=== PATIENT | female | born 1975 | race Two or more races ===

== ENCOUNTER 2022-08-23 12:05 | Outpatient (REF) | payer MEDICAID, SELFPAY ==
[2022-08-23 14:15] LABS: Estimated Average Glucose 100 mg/dL; Hemoglobin A1c % 5.1 %
[2022-08-23 14:23] LABS: Cholesterol 226 mg/dL; HDL Cholesterol 53 mg/dL; LDL Cholesterol Calculated 136 mg/dl; Triglycerides 187 mg/dL
== END 2022-08-23 12:06 | disposition home or self-care (01) ==
LOC: HO.HMGCLDS 12:05
PROVIDERS: Visit Provider Psychiatry & Neurology Psychiatry
DX: Z79.899 Other long term (current) drug therapy (principal)
CPT/HCPCS: 36415; 80061; 83036

== ENCOUNTER 2025-03-25 15:35 | Outpatient (REF) | payer MEDICAID, SELFPAY ==
--- OUTSIDE RECORDS SUMMARY | 2025-03-25 14:45 | XMS_ITS | Encounter Summary ---
Author Organization Formerly [facility], [facility] [employer] [facility] Address [address] [address] Care Team Providers Care Cardiac Nurse Practitioner Name Role Phone Margo Mcduffie CNP Primary Care Provider [phone] Reason for Referral * Consultation (Routine) - Pending Review Specialty Diagnoses / Procedures Referred By Caroline mancera Referred To Contact Chiropractic Medicine Diagnoses Encounter to establish care Margo Mcduffie CNP [address] [place] [address] Phone: tel: fax: Referral ID Status Reason Start Date Expiration Date Visits Requested Visits Authorized [id number] Pending Review Specialty Services Required 03/25/2025 03/25/2026 1 1 * Consultation (Routine) - Authorized Specialty Diagnoses / Procedures Referred By Caroline mancera Referred To Contact Nutrition Diagnoses Class 1 obesity due to excess calories without serious comorbidity with body mass index (BMI) of 30.0 to 30.9 in adult Margo Mcduffie CNP [address] [place] [address] Phone: tel: fax: Referral ID Status Reason Start Date Expiration Date Visits Requested Visits Authorized [id number] Authorized Consult and Treat 03/25/2025 03/25/2026 1 1 * Consultation (Routine) - Pending Review Specialty Diagnoses / Procedures Referred By Caroline mancera Referred To Contact Gastroenterology Diagnoses Encounter to establish care Encounter for screening and preventative care Margo Mcduffie CNP [address] [place] [address] Phone: tel: fax: Referral ID Status Reason Start Date Expiration Date Visits Requested Visits Authorized [id number] Pending Review Specialty Services Required 03/25/2025 03/25/2026 1 1 * Imaging (Routine) - Authorized Specialty Diagnoses / Procedures Referred By Caroline mancera Referred To Contact Radiology Diagnoses Encounter to establish care Encounter for screening and preventative care Procedures BI Mammogram Screening Tomosynthesis Bilateral Margo Mcduffie CNP [address] [place] [address] Phone: tel: fax: [address] Phone: tel: fax: Referral ID Status Reason Start Date Expiration Date V isits Requested Visits Authorized [id number] Authorized 03/25/2025 03/25/2026 1 1 Encounter Details Date Type Department Care Team (Late st Contact Info) Description 03/25/2025 2:45 PM EDT Office Visit [facility] [address] [place] [address] Margo Mcduffie CNP [address] [place] [address] Encounter to establish care (Primary Dx); Encounter for screening and preventative care; Vasomotor symptoms due to menopause; Dietary counseling; Exercise counseling; Class 1 obesity due to excess calories without serious comorbidity with body mass index (BMI) of 30.0 to 30.9 in adult Social History Tobacco Use Types Packs/Day Years Used Date Smoking Tobacco: Never Smokeless Tobacco: Never Tobacco Cessation:Counseling Given: Not Answered Alcohol Use Standard Drinks/Week Comments Never 0 (1 standard drink = 0.6 oz pur e alcohol) Depression Answer Date Recorded Patient Health Questionnaire-9 Score 4 03/25/2025 Patient Health Questionnaire-9 Score 4 03/25/2025 Last PHQ-9: Questionnaire Data Not on file 0 03/25/2025 Depression Answer Date Recorded Patient Health Questionnaire-2 Score 0 03/25/2025 Comments Unknown Sex and Gender Information Value Date Recorded Sex Assigned at Female 03/25/2025 2:16 PM EDT Legal Sex Female 9:45 AM EDT Gender Identity Female 03/25/2025 2:16 PM EDT Sexual Orientation Don't know 03/25/2025 2: 16 PM EDT documented as of this encounter Last Filed Vital Signs Vital Sign Reading Time Taken Comments Blood Pressure 124/68 03/25/2025 2:27 PM EDT Pulse 78 03/25/2025 2:27 PM EDT Temperature 37.1 C (98.8 F) 03/25/2025 2:27 PM EDT Respiratory Rate 20 03/25/2025 2:27 PM EDT Oxygen Saturation 98% 03/25/2025 2:27 PM EDT Inhaled Oxygen Concentration - - Weight 72 kg (158 lb 12.8 oz) 03/25/2025 2:27 PM EDT Height 154.9 cm (5' 1 ) 03/25/2025 2:27 PM EDT Body Mass Index 30 03/25/2025 2:27 PM EDT documented in this encounter Functional Status * Over the past 2 weeks, how often have you been bothered by any of the following problems? Question Answer Date of Assessment Author Patient Health Questionnaire -2 Score 0 03/25/2025 3:55 PM EDT Mary Davila MA * Little interest or pleasure in doing things Answer Date of Assessment Author Not at all 03/25/2025 3:55 PM EDT [place] Marlene hanna [place] * Feeling down, depressed, or hopeless Answer Date of Assessment Author Not at all 03/25/2025 3:55 PM EDT [place] Marlene hanna MA * Trouble falling or staying asleep, or sleeping too much Answer Date of Assessment Author Not at all 03/25/2025 3:55 PM EDT [place] Marlene hanna MA * Feeling tired or having little energy Answer Date of Assessment Author Several days 03/25/2025 3:55 PM EDT [place] Marlene hanna MA * Poor appetite or overeating Answer Date of Assessment Author Several days 03/25/2025 3:55 PM EDT [place] Marlene hanna MA * Feeling bad about yourself - or that you are a failure or have let yourself or your family down Answer Date of Assessment Author Several days 03/25/2025 3:55 PM EDT [place] Marlene hanna MA * Trouble concentrating on things, such as reading the newspaper or watching television Answer Date of Assessment Author Several days 03/25/2025 3:55 PM EDT [place] Marlene hanna MA * Moving or speaking so slowly that other people could have noticed? Or the opposite - being so fidgety or restless that you have been moving around a lot more than usual. Answer Date of Assessment Author Not at all 03/25/2025 3:55 PM EDT [facility] Marlene hanna MA * Thoughts that you would be better off or hurting yourself in some way Answer Date of Assessment Author Not at all 03/25/2025 3:55 PM EDT Sum[facility]arlene Younger MA * Patient Health Questionnaire-9 Score Answer Date of Assessment Author 4 03/25/2025 3:55 PM EDT [place] Marlene hanna MA * How difficult have these problems made it for you to do your work, take care of things at home, or get along with other people? Answer Date of Assessment Author Somewhat difficult 03/25/2025 3:55 PM EDT Marlene Perez MA * Over the last 2 weeks, how often have you been bothered by any of the following problems? Question Answer Date of Assessment Author Feeling nervous, anxious, or on edge 1 03/25/2025 3:56 PM EDT Mary Davila MA Not being able to stop or control worrying 2 03/25/2025 3:56 PM EDT Mary Davila MA Worrying too much about different things 2 03/25/2025 3:56 PM EDT Mary Davila MA Trouble relaxing 2 03/25/2025 3:56 PM EDT Marlene Belle MA Being so restless that it is hard to sit still 1 03/25/2025 3:56 PM EDT Mary Davila MA Becoming easily annoyed or irritable 2 03/25/2025 3:56 PM EDT Mary Davila MA Feeling afraid as if somethi ng awful might happen 1 03/25/2025 3:56 PM EDT Mary Davila MA ROMAN-7 Total Score 11 03/25/2025 3:56 PM EDT Marlene Dvaila MA documented as of this encounter Plan of Treatment Upcoming Encounters Date Type Department Care Team (Late st Contact Info) Description 05/06/2025 1:30 PM EDT Office Visit [facility] [address] [place] [address] McduffieMargo, PRECISION LENS GRINDER APPRENTICE [address] [place] [address] Scheduled Orders Name Type Priority Associated Diagnoses Orde r Schedule BI Mammogram Screening Tomosynthesis Bilateral Imaging Routine Encounter to establish care Encounter for screening and preventative care Expected: 03/25/2025, Expires: 05/25/2026 HIV-1/2 Antigen and Antibodies, Fourth Generation, with Reflexes Lab Routine Encounter to establish care Expected: 03/25/2025 (Approximate), Expires: 03/25/2026 Hepatitis C Antibody with Reflex to HCV, RNA, Quantitative, Real-Time PCR Lab Routine Encounter to establish care Expected: 03/25/2025, Expires: 03/25/2026 Lipid Panel, Standard Lab Routine Encounter to establish care Expected: 03/25/2025 (Approximate), Expires: 03/25/2026 CBC auto differential Lab Routine Encounter to establish care Expected: 03/25/2025 (Approximate), Expires: 03/25/2026 TSH W/Reflex to FT4 Lab Routine Encounter to establish care Expected: 03/25/2025 (Approximate), Expires: 03/25/2026 Comprehensive Metabolic Panel Lab Routine Encounter to establish care Expected: 03/25/2025 (Approximate), Expires: 03/25/2026 Scheduled Referrals Name Type Priority Associated Diagnoses Order Schedule Referral to Gastroenterology Outpatient Referral Routine Encounter to establish care Encounter for screening and preventative care Expected: 03/25/2025 (Approximate), Expires: 03/25/2026 Referral to Nutrition Therapy Outpatient Referral Routine Class 1 obesity due to excess calories without serious comorbidity with body mass index (BMI) of 30.0 to 30.9 in adult Expected: 03/25/2025 (Approximate), Expires: 03/25/2026 Referral to Chiropractic Outpatient Referral Routine Encounter to establish care Expected: 03/25/2025 (Approximate), Expires: 03/25/2026 documented as of this encounter Visit Diagnoses Diagnosis Encounter to establish care- Primary Encounter for screening and preventative care Vasomotor symptoms due to menopause Dietary counseling Dietary surveillance and counseling Exercise counseling Class 1 obesity due to excess calories without serious comorbidity with body mass index (BMI) of 30.0 to 30.9 in adult documented in this encounter Additional Health Concerns Assessment Noted Time PHQ-9 Depression Total Score: 4 03/25/20 3:55 PM EDT documented as of this encounter Care Teams Cardiac Nurse Practitioner Relationship Specialty Start Date End Date Margo Mcduffie CNP [address] [place] [id number] PCP - General Family Medicine 03/25/25 documented as of this encounter
--- OUTSIDE RECORDS SUMMARY | 2025-03-25 17:43 | XMS_ITS | Encounter Summary ---
Author Organization [employer] Address [address] [place] [address] [address] [place] [address] Care Team Providers Care Infrastructure Engineer Name Role Phone Unavailable Primary Care Provider Unavailabl e Encounter Details Date Type Department Care Team (Latest Contact Info) Description 03/24/2025 Travel Social History Tobacco Use Types Packs/Day Years Used Date Smoking Tobacco: Never Assessed Depression Answer Date Recorded Patient Health Questionnaire-9 [...] PM EDT documented as of this encounter Plan of Treatment Upcoming Encounters Date Type Department Care Team ( st Contact Info) Description 05/06/2025 1:30 PM EDT Office Visit [facility] [address] [place] [address] Margo Mcduffie, TETO [address] [place] [address] documented as of this encounter Visit Diagnoses Not on filedocumented in this encounter
--- OUTSIDE RECORDS SUMMARY | 2025-03-25 17:43 | XMS_ITS | Clinical Summary ---
Author Organization [employer] Address [address] [facility] [address] [place] [address] Care Team Providers Care Film Process Operator Name Role Phone Margo Mcduffie CLAY STRUCTURE BUILDER AND SERVICER Primary Care Provider [phone] Allergies No known active allergies Medications albuterol 108 (90 Base) MCG/ACT inhaler INHALE 2 PUFFS INTO THE LUNGS EVERY 4 TO 6 HOURS NEEDED FOR DYSPNEA 04/14/20 24 Active escitalopram (Lexapro) 20 MG tablet Take 1 tablet by mouth Once per day. 02/08/20 25 Active guanFACINE (Intuniv) 1 mg 24 hr tablet TAKE 1 TABLET BY MOUTH DAILY FOR FOCUS OR ANXIETY PREVENTION 01/06/20 25 Active QUEtiapine (SEROquel) 100 MG tablet TAKE 1 TABLET BY MOUTH EVERY NIGHT AT BEDTIME DIRECTED 02/11/20 25 Active QUEtiapine (SEROquel) 25 MG tablet TAKE 1 TABLET BY MOUTH ONCE A DAY NEEDED FOR PARANOIA 02/11/20 25 Active ARIPiprazole (Abilify) 5 MG tablet TAKE 1/2 TABLET BY MOUTH EVERY DAY FOR 6 DAYS THEN INCREASE TO 1 TABLET DAILY THEREAFTER 11/08/19 23 Active clonazePAM (KlonoPIN) 0.5 MG tablet Take 0.25 mg by mouth. 04/06/20 18 Active clotrimazole (Lotrimin) 1 % cream Apply topically. 03/11/20 20 Active OXcarbazepine (Trileptal) 300 MG tablet Take 300 mg by mouth. 03/12/20 20 Active traZODone (Desyrel) 100 MG tablet TAKE 1 TO 2 TABLETS BY MOUTH EVERY NIGHT NEEDED FOR INSOMNIA 10/14/19 23 Active gabapentin (Neurontin) 100 MG capsuleIndicat ions:Vasomotor symptoms due to menopause Take 1 capsule (100 mg) by mouth at bedtime. 30 capsule 11 03/25/20 25 /12/2 026 Active amoxicillin (Amoxil) 500 MG capsule Take 1 capsule by mouth 2 times daily. 11/30/19 025 Discontinued buPROPion XL (Wellbutrin XL) 150 MG 24 hr tablet take 1 tablet by mouth every morning as directed 01/12/20 025 Discontinued BinaxNOW COVID-19 Ag Home Test kit TEST DIRECTED TODAY 12/03/19 025 Discontinued fluticasone (Flonase) 50 MCG/ACT nasal spray shake liquid and use 1 spray in each nostril twice daily 04/14/20 025 Discontinued predniSONE (Deltasone) 20 MG tablet TAKE 2 TABLETS BY MOUTH EVERY MORNING FOR 4 DAYS 04/14/20 025 Discontinued Active Problems Problem Noted Date Diagnosed Date Menopausal symptoms 05/27/2020 Family history of colonic polyps 09/14/2019 S/P hysterectomy 09/14/2019 Depression with anxiety 07/31/2017 Exercise-induced bronchospasm 07/31/2017 Overview (03/25/2025): Possible 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/31/2017 Migraine without aura 07/31/2017 Neck pain 07/31/2017 Encounters Date Type Department Care Team Description 03/25/2025 2:45 PM EDT Office Visit [facility] [address] [place] [address] Margo Mcduffie CNP Encounter to establish care (Primary Dx); Encounter for screening and preventative care; Vasomotor symptoms due to menopause; Dietary counseling; Exercise counseling; Class 1 obesity due to excess calories without serious comorbidity with body mass index (BMI) of 30.0 to 30.9 in adult 03/25/2025 Travel 03/24/2025 Travel 03/18/2025 Patient Outreach [facility] [address] [place] [address] Alex Segovia MD Pre-visit Planning (Pre visit planning LVM ) 03/15/2025 Telephone [facility] [address] [place] [address] Marlene Davila MA chart prep 02/10/2025 Telephone [facility] [address] [place] [address] Alex Segovia MD NEW PT APPT 01/12/2025 Telephone [facility] [address] [place] [address] Alex Segovia MD New Patient from Last 3 Months Immunizations Immunization Administration Dates Next Due Influenza, seasonal, intradermal, preservative f ree 06/15/2013 Pneumococcal Polysaccharide PPSV23 09/14/2019 Td (adult), 5 Lf tetanus tox oid, preservative free, adsorbed 07/26/2009 Tdap 08/06/2016 Family History Medical History Relation Name Comments CVD Father Cancer Father Dementia Mother Relation Name Status Comments Father Mother Social History Tobacco Use Types Packs/Day Years [...] Don't know 03/25/2025 2: 16 PM EDT Last Filed Vital Signs Vital Sign Reading [...] Mass Index 30 03/25/2025 2:27 PM EDT Plan of Treatment Upcoming Encounters Date Type Department Care Team (Late st Contact Info) Description 05/06/2025 1:30 PM EDT Office Visit [facility] [address] [place] [address] Froy Margo, CLAY STRUCTURE BUILDER AND SERVICER [address] [place], [place] [id number] Health Maintenance Due Date Last Done Comments CT Colonography 1973 Colonoscopy 1973 Colorectal Cancer Screening 1973 FIT DNA/Cologuard 1973 FIT 1973 FOBT 1973 HIV Screening 1973 Lipid Panel 1973 SDOH Screening 1973 Sigmoidoscopy 1973 Family Planning (PISQ) 1988 Hepatitis C Screening 1991 Hepatitis B Vaccines (1 of 3 - 19+ 3-dose series) 1992 Pap Smear 1994 Cervical Cancer Screening 2003 HPV/Cotest 2003 Mammogram 09/22/2021 09/23/2019, 09/23/2019 Pneumococcal Vaccine: 50+ Years (2 of 2 - PCV) 2023 09/14/2019 Zoster Vaccines (1 of 2) 2023 COVID-19 Vaccine (3 - 2024-2 6 season) 2025 12/18/2020, 11/27/2020 Postponed from 03/14/2025 (Supply/Drug Shortage) Influenza Vaccine (#1) 2025 06/15/2013 Postp oned from 03/14/2025 (Supply/Drug Shortage) Alcohol/Substance Use Screening 03/25/2026 03/25/2025 Depression Screening 03/25/2026 03/25/2025, 03/25/2025 Disability Screening 03/25/2026 03/25/2025 Tobacco Screening 03/25/2026 03/25/2025 DTaP/Tdap/Td Vaccines (2 - T d or Tdap) 08/06/2026 08/06/2016, 07/26/2009 RSV Patients and Patients Aged 60 years or older (1 - 1-dose 75+ series) 2048 HIB Vaccines Aged Out No longer eligi ble based on patient's age to complete this topic HPV Vaccines Aged Out No longer eligi ble based on patient's age to complete this topic Hepatitis A Vaccines Aged Out No long er eligible based on patient's age to complete this topic IPV Vaccines Aged Out No longer eligi ble based on patient's age to complete this topic Meningococcal B Vaccine Aged Out No l onger eligible based on patient's age to complete this topic Meningococcal Vaccine Aged Out No cyndi peter eligible based on patient's age to complete this topic RSV under 20 months Aged Out No longe r eligible based on patient's age to complete this topic Rotavirus Vaccines Aged Out No longer eligible based on patient's age to complete this topic Insurance STANDARD Care Teams Film Process Operator Relationship Specialty Start Date End Date Margo Mcduffie CNP [address] [place] [address] [phone] PCP - General Family Medicine 03/25/25
--- OUTSIDE RECORDS SUMMARY | 2025-03-25 17:43 | XMS_ITS ---
Author Name [facility] Organization Unknown Care Team Organization Name Specialty Phone Email Start Date End [facility]
--- OUTSIDE RECORDS SUMMARY | 2025-03-25 17:43 | XMS_ITS | Encounter Summary ---
Author Organization [employer] Address [address] [facility] [address] [place] [address] Care Team Providers Care Mill House Supervisor Name Role Phone Margo Mcduffie TETO Primary Care Provider [phone] [phone] Encounter Details Date Type Department Care Team (Latest Contact Info) Description 03/25/2025 Travel Social History Tobacco Use Types Packs/Day Years Used Date Smoking Tobacco: Never Smokeless Tobacco: Never Alcohol Use Standard Drinks/Week Comments Never 0 [...] PM EDT documented as of this encounter Functional Status * Over the past 2 weeks, how often have you been bothered by any of the following problems? Question Answer Date of Assessment Author Patient Health Questionnaire -2 Score 0 03/25/2025 3:55 PM EDT Mary Davila MA * Little interest or pleasure in doing things Answer Date of Assessment Author Not at all 03/25/2025 3:55 PM EDT Marlene Romo MA * Feeling down, depressed, or hopeless Answer Date of Assessment Author Not at all 03/25/2025 3:55 PM EDT Marlene Romo MA * Trouble falling or staying asleep, [...] EDT [employer] Marlene hanna MA * Feeling bad about yourself - or that you are a failure or have let yourself or your family down Answer Date of Assessment Author Several days 03/25/2025 3:55 PM EDT [employer] Marlene hanna MA * Trouble concentrating on [...] PM EDT [employer] Marlene hanna MA * Thoughts that you would be better off or hurting yourself in some way Answer Date of Assessment Author Not at all 03/25/2025 3:55 PM EDT [employer] Marlene hanna MA * Patient Health Questionnaire-9 Score Answer Date of Assessment Author 4 03/25/2025 3:55 PM EDT [employer] Marlene hanna MA * How difficult have [...] Score 11 03/25/2025 3:56 PM EDT Marlene Davila MA documented as of this encounter Plan of Treatment Upcoming Encounters Date Type Department Care Team (Late st Contact Info) Description 05/06/2025 1:30 PM EDT Office Visit [facility] [address] [place] [address] Margo Mcduffie CNP [address] [place] [address] documented as of this encounter Visit Diagnoses Not on filedocumented in this encounter Additional Health Concerns Assessment Noted Time PHQ-9 Depression Total Score: 4 03/25/20 3:55 PM EDT documented as of this encounter Care Teams Mill House Supervisor Relationship Specialty Start Date End Date Margo Mcduffie CNP [address] [place] [address] PCP - General Family Medicine 03/25/25 documented as of this encounter
--- OUTSIDE RECORDS SUMMARY | 2025-03-25 17:43 | XMS_ITS | Clinical Summary ---
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 at bedtime. 1 Active OXcarbazepine (TRILEPTAL) 300 MG tablet Take 300 mg by mouth. 0 Active escitalopram oxalate (LEXAPRO) 10 MG tablet Take 20 mg by mouth. 0 Active QUEtiapine (SEROQUEL) 25 MG tablet Take 50 mg by mouth. 0 Active ARIPiprazole (ABILIFY) 5 MG tablet TAKE 1/2 TABLET BY MOUTH EVERY DAY FOR 6 DAYS THEN INCREASE TO 1 TABLET DAILY THEREAFTER 3 Active traZODone (DESYREL) 100 MG tablet TAKE 1 TO 2 TABLETS BY MOUTH EVERY NIGHT NEEDED FOR INSOMNIA 3 Active buPROPion (WELLBUTRIN XL) 300 MG ER 24 hr tablet Take 1 tablet by mouth every morning. 3 Active escitalopram oxalate (LEXAPRO) 20 MG tablet Take 1 tablet by mouth every morning. 4 Active Active Problems Problem Noted Date Diagnosed Date Menopausal symptoms 05/27/2020 Assessment & Plan (05/27/2020 2:56 PM EST): I reviewed that systemic estrogen is usually the best medication to help alleviate hot flashes and night sweats. In addition I looked up to see if there are any interactions between Seroquel and estradiol and I could not find any listed in up to date. I explained that it may be reasonable to try a patch formulation of the estradiol to see if this will make a difference. I explained and not sure if the delivery method will make a difference in terms of the symptoms she experienced which she attributes to combination of Seroquel and estradiol. However, this may be a reasonable option. She will discuss this with her psychiatrist to see if this is a reasonable step. 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 Overview (07/31/2017): Possible Immunizations Immunization Administration Dates Next Due Influenza trivalent preservative free intraderma l 06/15/2013 Pneumococcal polysaccharide PPSV23 09/14/2019 Td (adult) 5 Lf Tetanus Toxoid, PF, Adsorbed Tdap 08/06/2016 Family History Medical History Relation Comments Hypertension Brother 1 Atrial fibrillation Father Colon cancer Father Bone cancer Maternal Uncle Stroke Mother Stomach cancer Paternal Uncle Hypertension Sister 1 Relation Status Comments Brother 1 Alive Brother 2 Alive Brother 3 Alive Father Alive Maternal Uncle Mother Alive Paternal Uncle Sister 1 Alive Sister 2 Alive Sister 3 Alive Sister 4 Alive Sister 5 Alive Social History Tobacco Use Types Packs/Day Years Used Date Smoking Tobacco: Never Smokeless Tobacco: Never Alcohol Use Standard Drinks/Week Comments Not Currently 0 (1 standard drink = 0.6 oz pur e alcohol) Child or Family Care Answer Date Record ed Do you have problems with on e of the following making it difficult for you to work, study, or receive health care? I choose not to answer 12/09/2022 Education Answer Date Recorded Are you interested in more education? Not on leda e 12/12/2024 Are you concerned about learning? Not on file 12/12/2024 No 12/12/2024 No 12/12/2024 Food Answer Date Recorded Within the past 6 months we worried whether our food would run out before we got money to buy more. Often True 12/09/2022 Within the past 6 months the food we bought just didn't last and we didn't have enough money to get more. I choose not to answer 12/09/2022 Residential Stability Answer Date Recor ded What is your housing situation today? I choose n ot to answer 12/09/2022 How many times have you move d in the past 12 months? Zero (I did not move) 12/09/2022 Paying for Meds Answer Date Recorded Do you have trouble paying for medicines? I todd se not to answer 12/09/2022 Paying Utility Bills Answer Date Record ed Do you have trouble paying y our heating or electricity bill? I choose not to answer 12/09/2022 Transportation Answer Date Recorded Has the lack of transportati on kept you from medical appointments or from getting medications? Yes 12/09/2022 Digital Access Answer Date Recorded No 12/12/2024 No 12/12/2024 Reliable internet access at home? Not on file 12/12/2024 Device with a working camera? Not on file SNAP & WIC Answer Date Recorded Do you receive benefits from SNAP (the Supplemental Nutrition Assistance Program) or the Food Stamp Program? Yes 12/09/2022 SNAP is a free program, interested in learning m ore? Not on file 12/09/2022 Can we help you enroll in SNAP? Not on file 12/09/2022 Benefits received from WIC? Not on file 11/12 WIC is a free program, interested in learning mo re? Not on file 12/09/2022 Can we help you enroll in WIC? Not on file 0 12/09/2022 Intimate Partner Violence Answer Date R ecorded Denied Basic Needs Not on file 12/09/2022 In the past 12 months have y ou been in a relationship with a person who hurts, threatens, or tries to control you? No 12/09/2022 Worried food would run out Not on file 12/09 In the past 12 months have y ou been in a relationship with a person who hurts, threatens, or tries to control you? No 12/09/2022 Comments No Sex and Gender Information Value Date Recorded Sex Assigned at Not on file Legal Sex Female 9:31 PM EDT Gender Identity Not on file Sexual Orientation Not on file Occupation Industry Job Start Date Job End Date [employer] Not on file Not on file Not on file Last Filed Vital Signs Vital Sign Reading Time Taken Comments Blood Pressure 118/74 04/28/2020 9:19 AM EDT Pulse 54 04/11/2020 10:43 AM EDT Temperature 36.3 C (97.3 F) 04/11/2020 10:43 AM EDT Respiratory Rate - - Oxygen Saturation 98% 04/11/2020 10:43 AM EDT Inhaled Oxygen Concentration - - Weight 67.1 kg (148 lb) 04/28/2020 9:19 AM EDT Height 157.5 cm (5' 2 ) 04/28/2020 9:19 AM EDT Body Mass Index 27.07 04/28/2020 9:19 AM EDT Plan of Treatment Health Maintenance Due Date Last Done Comments COLOGUARD 2018 COLONOSCOPY 2018 COLORECTAL CANCER SCREENING 2018 FIT TEST 2018 FOBT 2018 SIGMOIDOSCOPY 2018 VIRTUAL COLONOSCOPY 2018 MAMMOGRAM 09/22/2021 09/23/2019 PNEUMOCOCCAL VACCINES (50+ years) (2 of 2 - PCV) 2023 09/14/2019 ZOSTER VACCINES (1 of 2) 2023 DEPRESSION SCREENING 12/10/2023 12/09/2022 INFLUENZA VACCINE (#1) 2025 06/15/2013 COVID-19 VACCINE (3 - 2024-2 6 season) 2025 12/18/2020, 11/27/2020 Adult Td,Tdap Booster 08/06/2026 08/06/2016 , 07/26/2009 LIPID PANEL 09/18/2028 09/19/2023, 09/14/2019, 09/14/2019 HEPATITIS C SCREENING Completed 04/11/2020 , 04/11/2020 HIV ONE-TIME SCREENING (18-6 5 YEARS) Completed 04/11/2020 SMOKING STATUS SCREENING (On ce After 26 Yrs) Completed 05/26/2020 HEPATITIS A VACCINES Aged Out No long er eligible based on patient's age to complete this topic HIB VACCINES Aged Out No longer eligi ble based on patient's age to complete this topic MENINGOCOCCAL VACCINES (ACWY) Aged Out No longer eligible based on patient's age to complete this topic MENINGOCOCCAL VACCINES (B) Aged Out N o longer eligible based on patient's age to complete this topic Medical Devices Not on file Procedures Procedure Name Priority Date/Time Associated Diagnosis Comments HEPATITIS C ANTIBODY, QUALITATIVE Routine 04/11/2020 11:30 AM EDT Routine screening for STI (sexually transmitted infection) BI MAMMOGRAM SCREENING WITH TOMOSYNTHESIS WITH CAD (BILATERAL) Routine 09/23/2019 11:29 AM EDT Screening for breast cancer LIPID PANEL Routine 09/14/2019 11:24 AM EST Screening, lipid from Last 3 Months or Most Recently Relevant to Health Maintenance Results * Hepatitis C antibody, qualitative (04/11/2020 11:30 AM EDT) HCV NON-REACTIV E NON-REACTI VE [facility] Blood 04/11/2020 11:3 0 AM EDT 04/11/2020 11:32 AM EDT us Albert Singh COMPREHENSIVE ADVISOR LAB BLOOD ORDERABLES F inal Result [address] [address] * BI MAMMOGRAM SCREENING WITH TOMOSYNTHESIS WITH CAD (BILATERAL) (09/23/2019 11:29 AM EDT) Anatomical Region Laterality Modality Breast Left, Breast Right, Breast Bilateral Bila teral Mammography 09/23/2019 4:09 PM EDT Impressions 09/23/2019 4:13 PM EDT No mammographic signs of malignancy. Annual screening is recommended. BI-RADS CATEGORY: 1 - Negative. DENSITY: There are scattered fibroglandular densities. POS - [id number] Narrative 09/23/2019 4:13 PM EDT Bilateral mammography is performed in conjunction with computed aided detection. 3-D tomography along with 2-D C view imaging was also performed. This is a baseline exam. No suspicious masses, areas of architectural distortion or suspicious microcalcifications. Procedure Note Henri Baer MD - 09/23/2019 Bilateral mammography is performed in conjunction with computed aideddetection. 3-D tomography along with 2-D C view imaging was alsoperformed. This is a baseline exam. No suspicious masses, areas of architectural distortion or suspiciousmicrocalcifications. IMPRESSION: No mammographic signs of malignancy. Annual screening is recommended. BI-RADS CATEGORY: 1 - Negative. DENSITY: There are scattered fibroglandular densities. POS - [id number] Albert Singh COMPREHENSIVE ADVISOR IMG MG EXAMS Final Result * Lipid panel (09/14/2019 11:24 AM EST) HDL 46 mg/dL [facility] Comment: Interpretation <40 mg/dL: Low HDL cholesterol (major risk factor for CHD) Greater than or equal to 60 mg/dL: High HDL cholesterol ( negative risk factor for CHD) HDL - cholesterol is affected by a number of factors, e.g. smoking, excerise, hormones, sex and age. CHOLESTEROL 171 0 - 240 mg/dL [facility] TRIGLYCERIDES 148 30 - 160 mg/dL [facility] LDL 95 50 - 129 mg/dL [facility] Comment: LDL levels in terms of risk for coronary heart disease: <100 mg/dL: Optimal 100-129 mg/dL: Near or above optimal 130-159 mg/dL: Borderline high 160-189 mg/dL: High >190 mg/dL: Very High CARDIAC RISK RATIO 3.7 3.3 - 4.4 C [facility] Blood 09/14/2019 11:2 4 AM EST 09/14/2019 11:26 AM EST Albert Singh COMPREHENSIVE ADVISOR LAB BLOOD ORDERABLES F inal Result [facility] [address] [place], [place] [id number] from Last 3 Months or Most Recently Relevant to Health Maintenance Insurance [employer] Member Subscriber Plan / Payer (Ef fective 2013-Present) Name:Saray Zhaoara Relation to Subscriber:Self Name:Josefa Zhao Payer ID:[id number] (NAIC) Group ID:Not on file Type:Medicaid Address: [address] [employer] [facility] [employer] [place] [employer] [facility] [employer] [place] [employer] Member Subscriber Plan / Payer (Ef fective 2013-Present) Name:Josefa Zhao Relation to Subscriber:Self Name:Josefa Zhao Payer ID:[id number] (NAIC) Group ID:Not on file Type:Medicaid Address: [address] [place] [id number] [facility] [employer] [facility] [employer] [facility] [employer] [employer] [facility] [employer] [facility] [employer] Care Teams Auto Customize Painter Relationship Specialty Start Date End Date Albert Singh CNP [address] [facility] [place] [address] [email or web address] PCP - General 07/31/17 Donny Perry MD [address] [facility] [place] [address] [email or web address] Internal Medicine 09/10/18 Additional Source Comments The information contained in this document represents components of the legal health record. It is not the complete legal health record.[facility]
[2025-03-25 18:11] LABS: MANUAL DIFF FLAG NO
[2025-03-25 18:20] LABS: Hematocrit 39.3 % (37.0-47.0); Hemoglobin 13.6 g/dl (12.0-16.0); Imm Gran Abs Auto 0.02 X10*3/uL (0.00-0.03); Imm Gran Pct Auto 0.2 % (0.0-0.4); Lymphocytes Absolute Auto 2.7 X10*3/uL (1.2-4.9); Mean Corpuscular HGB Conc 34.6 g/dl (31.0-35.0); Mean Corpuscular Hemoglobin 31.1 pg (27.0-33.0); Mean Corpuscular Volume 89.7 fL (80.0-98.0); NRBC Abs Auto 0.000 X10*3/uL (0.0-0.012); NRBC Pct Auto 0.0 /100WBC (0.0-0.2); Platelet Count 231 X10*3/uL (160-400); Red Blood Count 4.38 X10*6/uL (4.20-5.50); White Blood Count 8.3 X10*3/uL (4.8-10.8)
[2025-03-25 18:50] LABS: Alanine Aminotransferase 54 U/L (0-31); Albumin Level 4.9 g/dL (3.5-5.0); Alkaline Phosphatase 83 U/L (39-117); Anion Gap 15 (12-20); Aspartate Amino Transferase 40 U/L (5-31); Blood Urea Nitrogen 14 mg/dL (9-16); Calcium 10.0 mg/dL (8.4-10.2); Carbon Dioxide 23 mmol/L (22-29); Chloride 107 mmol/L (96-108); Cholesterol 207 mg/dL (<200); Estimated Glomerular Filt Rate > 60; HDL Cholesterol 60 mg/dL (>40); Potassium 3.3 mmol/L (3.3-5.1); Sodium 142 mmol/L (135-145); Total Protein 8.4 g/dL (6.5-8.0); Triglycerides 124 mg/dL (<150)
[2025-03-26 08:53] LABS: HIV Num 1 0.06 S/CO (0.00-0.99); ~HepC Num1 0.16 S/CO (0.00-0.79); ~Hepatitis C Antibody Nonreactive (Nonreactive)
== END 2025-03-25 15:36 | disposition home or self-care (01) ==
LOC: HO.CHCLDS 15:35
DX: Z11.4 Encounter for screening for human immunodeficiency virus [HIV] (principal); Z11.59 Encounter for screening for other viral diseases; Z76.89 Persons encountering health services in other specified circumstances
CPT/HCPCS: 36415; 80053; 80061; 84443; 85025; 86803; 87389

== ENCOUNTER 2025-05-03 08:10 | Outpatient (REF) | payer MEDICAID, SELFPAY ==
[2025-05-04 03:39] LABS: HBS Num1 > 1000.00 mIU/mL (0-7.99); HBc Num1 0.13 S/CO (0.00-0.79); HBsAGNum1 0.31 S/CO (0.00-0.99); Hepatitis B Surface Antigen Negative (Negative); ~Hepatitis B Surface Antibody REACTIVE (Nonreactive)
[2025-05-09 15:08] LABS: Anti Nuclear Antibody Screen NEGATIVE (NEGATIVE)
== END 2025-05-03 08:11 | disposition home or self-care (01) ==
LOC: HO.CHCLDS 08:10
DX: Z11.59 Encounter for screening for other viral diseases (principal); Z01.84 Encounter for antibody response examination; R74.01 Elevation of levels of liver transaminase levels; R73.09 Other abnormal glucose
CPT/HCPCS: 36415; 82784; 83036; 86038; 86704; 86706; 87340